=== PATIENT | male | born 1960 | race Caucasian/White ===

== ENCOUNTER 2016-07-25 17:51 | Inpatient (IN) | payer OTHER ==
[~2016-07-25] VITALS: Ht 172.7 cm; Wt 97.7 kg
[2016-07-25] MEDS ORDERED: IPRATRPIUM/ALBUTEROL 0.5/2.5MG 3 ML NEBU. NEB ONE (19:45)
[2016-07-25 20:00] VITALS: BP 121/75
[2016-07-25] MEDS: IPRATRPIUM/ALBUTEROL 0.5/2.5MG 3 ML NEBU. NEB SCH (20:37)
[2016-07-25 21:34] LABS: BASO # 0.1 x10^3/uL (0.0-0.2)
[2016-07-25 21:51] LABS: ALBUMIN/GLOBULIN RATIO 1.1 (1.0-1.7); CALCIUM 9.4 mg/dL (8.5-10.1); CREATININE 0.9 mg/dL (0.7-1.3); GFR 87.9; TOTAL BILIRUBIN 0.3 mg/dL (0.2-1.0); TOTAL PROTEIN 7.7 g/dL (6.4-8.2)
[2016-07-25 23:00] VITALS: BP 136/78
[2016-07-25 23:09] LABS: HEMATOCRIT 45.8 % (39.0-53.0); HEMOGLOBIN 15.9 g/dL (13.0-17.5); RED BLOOD COUNT 5.17 x10^6/uL (4.30-5.70); WHITE BLOOD COUNT 12.8 x10^3/uL (4.0-11.0)
[2016-07-25 23:10] LABS: MEAN CORPUSCULAR HEMOGLOBIN 31 pg (25-35); MEAN CORPUSCULAR HGB CONC 35 g/dL (31-37); MEAN CORPUSCULAR VOLUME 89 fL (79-100); PLATELET COUNT 313 x10^3/uL (140-400); RED CELL DISTRIBUTION WIDTH 13.7 % (11.5-14.5)
[2016-07-25 23:11] LABS: EOS % 3 % (0-3); LYMPH % 42 % (24-48); MONO % 10 % (0-9); NEUT % 44 % (31-73)
--- NOTE | 2016-07-25 23:11 | EKG ---
[facility] [address] [place] [id number] Test Date: 2016-07-25 Test Time: 22:03:54 Pat Name: SHANE ISNGH Department: Room: 5 1 Gender: M Mirror Silverer: [facility] : 1960 Requested By: GARTH COELHO Order Number: [id number] Reading MD: Mich Delcid Measurements Intervals [place] Rate: 66 P: 38 TN: 174 QRS: -5 QRSD: 90 T: 26 QT: 398 QTc: 419 Interpretive Statements SINUS RHYTHM Electronically Signed On 07-31-2016 13:39:46 CDT by Mich Delcid
[2016-07-25 23:12] LABS: BASO % 1 % (0-3); LYMPH # 5.4 x10^3/uL (1.0-4.8)
[2016-07-26 05:46] LABS: CHOLESTEROL/HDL RATIO 7.3
[2016-07-26 07:00] VITALS: BP 122/66
[2016-07-26] MEDS: IPRATRPIUM/ALBUTEROL 0.5/2.5MG 3 ML NEBU. NEB SCH ×3 (07:57→15:53)
--- NOTE | 2016-07-26 08:49 | RAD ---
Indication: Pneumonia Technique: Two-view chest radiograph was obtained. Comparison is from January 03, 2015. Findings: The lungs are clear. The cardiopulmonary silhouette is within normal limits. There is no pleural effusion. The bony structures are intact. Leads overlie the patient. Impression: No acute thoracic findings.
[2016-07-26] MEDS ORDERED: REGADENOSON 0.4 MG/5 ML DISP.SYRIN. IV ONE (09:00)
[2016-07-26 11:00] VITALS: BP 133/64
[2016-07-26] MEDS ORDERED: ACETAMINOPHEN 325 MG TABLET. PO PRN (11:30)
--- NOTE | 2016-07-26 12:08 | PDOC2 ---
CONSULT Date of Consult Date of Consult DATE: 07/26/16 TIME: 11:53 Reason for Consult Reason for Consult: Lymphocytosis Referring Physician Referring Physician: Gilmer Identification/Chief Complaint Chief Complaint malaise Source Source: Patient History of Present Illness Reason for Visit: 55 y/o male with 4 week h/o malise weakness and night sweats but no fevers Had not seen doctor for about 2 years and was feeling ok but went to see Dr Gudino. He says he started feeling like he caught something after this with malaise, leg weakness and aches. Do not have report but was told WBC was abnl. Has been on amoxil about 10 days without help and now admitted. Current cbc shows wbc just over 12 and lymph just over 5000. Not had weight loss, no travel, tick bite or ill exposures to his knowledge. Past Medical History Cardiovascular: Hyperlipidemia (recently rx medication but had not started) CENTRAL NERVOUS SYSTEM: Migraine (uses naproxen about 1x/week) Family History Family History: Other (brother with colon cancer - patient has done c scope about 2 years ago, mom with htn) Social History 1 pack per day (stopped 1 mo ago) ALCOHOL: none (quit about 8 years ago) Lives: with Family Current Medications Current Medications Current Medications Albuterol/ Ipratropium (Duoneb) 3 ml RTQID NEB Last administered on 07/26/16 07:57; Start 07/25/16 at 20:00 Albuterol/ Ipratropium (Duoneb) 3 ml 1X ONCE NEB ; Start 07/25/16 at 19:45; Stop 07/25/16 at 21:30; Status DC Regadenoson (Lexiscan) 0.4 mg 1X ONCE IV Last administered on 07/26/16 10:43 ; Start 07/26/16 at 09:00; Stop 07/26/16 at 09:03; Status DC Acetaminophen (Tylenol) 650 mg PRN Q6HRS PRN PO pain , and temp Last administered on 07/26/16 11:39; Start 07/26/16 at 11:30 Allergies Allergies: Coded Allergies: No Known Drug Allergies (Unverified , 07/25/16) ROS General: YES: Chills, Night Sweats, Fatigue, Malaise PSYCHOLOGICAL ROS: No: Anxiety, Behavioral Disorder, Concentration difficultie , Decreased libido, Depression, Disorientation, Hallucinations, Hostility, Irritablity, Memory difficulties, Mood Swings, Obsessive thoughts, Physical abuse, Sexual abuse, Sleep disturbances, Suicidal ideation, Other Eyes: No Blurry vision, No Decreased vision, No Double vision, No Dry eyes, No Excessive tearing, No Eye Pain, No Itchy Eyes, No Loss of vision, No Photophobia , No Scotomata, No Uses contacts, No Uses glasses, No Other HEENT: No: Heacaches, Visual Changes, Hearing change, Nasal congestion, Nasal discharge, Oral lesions, Sinus pain, Sore Throat, Epistaxis, Sneezing, Snoring, Tinnitus, Vertigo, Vocal changes, Other ALLERGY AND IMMUNOLOGY: No: Hives, Insect Bite Sensitivity, Itchy/Watery Eyes, Nasal Congestion, Post Nasal Drip, Seasonal Allergies, Other Hematological and Lymphatic: No: Bleeding Problems, Blood Clots, Blood Transfusions, Brusing, Night Sweats, Pallor, Swollen Lymph Nodes, Other ENDOCRINE: No: Breast Changes, Galactorrhea, Hair Pattern Changes, Hot Flashes , Malaise/lethargy, Mood Swings, Palpitations, Polydipsia/polyuria, Skin Changes , Temperature Intolerance, Unexpected Weight Changes, Other Respiratory: YES: Cough (CXR negative) Cardiovascular: No Chest Pain, No Palpitations, No Orthopnea, No Paroxysmal Noc. Dyspnea, No Edema, No Lt Headedness, No Other Gastrointestinal: No Nausea, No Vomiting, No Abdominal Pain, No Diarrhea, No Constipation, No Melena, No Hematochezia, No Other Genitourinary: No Dysuria, No Frequency, No Incontinence, No Hematuria, No Retention, No Discharge, No Urgency, No Pain, No Flank Pain, No Other, No , No , No , No , No , No , No Musculoskeletal: Yes Muscle Pain Neurological: Yes Headaches (chronic with migraine and some after recent stress test but not unusual) Skin: No Dry Skin, No Eczema, No Hair Changes, No Lumps, No Mole Changes, No Mottling, No Nail Changes, No Pruritus, No Rash, No Skin Lesion Changes, No Other, No Acne Physical Exam General: Alert, Oriented X3, Cooperative, No acute distress HEENT: Atraumatic, PERRLA, Mucous membr. moist/pink Heart: Regular rate, Normal S1, Normal S2 Abdomen: Normal bowel sounds, Other (obese, may have generous spleen, not tender) Extremities: No clubbing, No cyanosis, No edema, Normal pulses Skin: No rashes Neuro: Normal speech, Normal tone, Cranial nerves 3-12 NL Psych/Mental Status: Mental status NL MUSCULOSKELETAL: No joint tenderness, No deformity, No swelling Vitals VITALS Vital Signs Date Time Temp Pulse Resp B/P (MAP) Pulse Ox O2 Delivery O2 Flow Rate FiO2 07/26/16 08:00 Room Air 07/26/16 07:58 97 07/26/16 07:00 97.7 65 20 122/66 (84) 97.7 Labs Labs Laboratory Tests Test 07/25/16 21:25 07/26/16 04:10 White Blood Count 12.8 x10^3/uL (4.0-11.0) Red Blood Count 5.17 x10^6/uL (4.30-5.70) Hemoglobin 15.9 g/dL (13.0-17.5) Hematocrit 45.8 % (39.0-53.0) Mean Corpuscular Volume 89 fL (79-100) Mean Corpuscular Hemoglobin 31 pg (25-35) Mean Corpuscular Hemoglobin Concent 35 g/dL (31-37) Red Cell Distribution Width 13.7 % (11.5-14.5) Platelet Count 313 x10^3/uL (140-400) Neutrophils (%) (Auto) 44 % (31-73) Lymphocytes (%) (Auto) 42 % (24-48) Monocytes (%) (Auto) 10 % (0-9) Eosinophils (%) (Auto) 3 % (0-3) Basophils (%) (Auto) 1 % (0-3) Neutrophils # (Auto) 5.6 x10^3uL (1.8-7.7) Lymphocytes # (Auto) 5.4 x10^3/uL (1.0-4.8) Monocytes # (Auto) 1.2 x10^3/uL (0.0-1.1) Eosinophils # (Auto) 0.2 x10^3/uL (0.0-0.7) Basophils # (Auto) 0.1 x10^3/uL (0.0-0.2) Erythrocyte Sedimentation Rate 7 (0-15) Sodium Level 143 mmol/L (136-145) Potassium Level 4.0 mmol/L (3.5-5.1) Chloride Level 105 mmol/L (98-107) Carbon Dioxide Level 30 mmol/L (21-32) Anion Gap 8 (6-14) Blood Urea Nitrogen 13 mg/dL (8-26) Creatinine 0.9 mg/dL (0.7-1.3) Estimated GFR (Cockcroft-Gault) 87.9 BUN/Creatinine Ratio 14 (6-20) Glucose Level 130 mg/dL (70-99) Calcium Level 9.4 mg/dL (8.5-10.1) Total Bilirubin 0.3 mg/dL (0.2-1.0) Aspartate Amino Transf (AST/SGOT) 21 U/L (15-37) Alanine Aminotransferase (ALT/SGPT) 38 U/L (16-63) Alkaline Phosphatase 73 U/L (46-116) Troponin I Quantitative < 0.017 ng/mL (0.000-0.055) JO-Lfc-I-Type Natriuretic Peptide 43 pg/mL (0-124) Total Protein 7.7 g/dL (6.4-8.2) Albumin 4.0 g/dL (3.4-5.0) Albumin/Globulin Ratio 1.1 (1.0-1.7) Creatine Kinase 73 U/L (39-308) Triglycerides Level 170 mg/dL (0-150) Cholesterol Level 203 mg/dL (0-200) LDL Cholesterol, Calculated 141 mg/dL (0-100) VLDL Cholesterol, Calculated 34 mg/dL (0-40) Non-HDL Cholesterol Calculated 175 mg/dL (0-129) HDL Cholesterol 28 mg/dL (40-60) Cholesterol/HDL Ratio 7.3 Thyroid Stimulating Hormone (TSH) 2.962 uIU/mL (0.358-3.74) Laboratory Tests Test 07/25/16 21:25 07/26/16 04:10 White Blood Count 12.8 x10^3/uL (4.0-11.0) Red Blood Count 5.17 x10^6/uL (4.30-5.70) Hemoglobin 15.9 g/dL (13.0-17.5) Hematocrit 45.8 % (39.0-53.0) Mean Corpuscular Volume 89 fL (79-100) Mean Corpuscular Hemoglobin 31 pg (25-35) Mean Corpuscular Hemoglobin Concent 35 g/dL (31-37) Red Cell Distribution Width 13.7 % (11.5-14.5) Platelet Count 313 x10^3/uL (140-400) Neutrophils (%) (Auto) 44 % (31-73) Lymphocytes (%) (Auto) 42 % (24-48) Monocytes (%) (Auto) 10 % (0-9) Eosinophils (%) (Auto) 3 % (0-3) Basophils (%) (Auto) 1 % (0-3) Neutrophils # (Auto) 5.6 x10^3uL (1.8-7.7) Lymphocytes # (Auto) 5.4 x10^3/uL (1.0-4.8) Monocytes # (Auto) 1.2 x10^3/uL (0.0-1.1) Eosinophils # (Auto) 0.2 x10^3/uL (0.0-0.7) Basophils # (Auto) 0.1 x10^3/uL (0.0-0.2) Erythrocyte Sedimentation Rate 7 (0-15) Sodium Level 143 mmol/L (136-145) Potassium Level 4.0 mmol/L (3.5-5.1) Chloride Level 105 mmol/L (98-107) Carbon Dioxide Level 30 mmol/L (21-32) Anion Gap 8 (6-14) Blood Urea Nitrogen 13 mg/dL (8-26) Creatinine 0.9 mg/dL (0.7-1.3) Estimated GFR (Cockcroft-Gault) 87.9 BUN/Creatinine Ratio 14 (6-20) Glucose Level 130 mg/dL (70-99) Calcium Level 9.4 mg/dL (8.5-10.1) Total Bilirubin 0.3 mg/dL (0.2-1.0) Aspartate Amino Transf (AST/SGOT) 21 U/L (15-37) Alanine Aminotransferase (ALT/SGPT) 38 U/L (16-63) Alkaline Phosphatase 73 U/L (46-116) Troponin I Quantitative < 0.017 ng/mL (0.000-0.055) YV-Dvd-I-Type Natriuretic Peptide 43 pg/mL (0-124) Total Protein 7.7 g/dL (6.4-8.2) Albumin 4.0 g/dL (3.4-5.0) Albumin/Globulin Ratio 1.1 (1.0-1.7) Creatine Kinase 73 U/L (39-308) Triglycerides Level 170 mg/dL (0-150) Cholesterol Level 203 mg/dL (0-200) LDL Cholesterol, Calculated 141 mg/dL (0-100) VLDL Cholesterol, Calculated 34 mg/dL (0-40) Non-HDL Cholesterol Calculated 175 mg/dL (0-129) HDL Cholesterol 28 mg/dL (40-60) Cholesterol/HDL Ratio 7.3 Thyroid Stimulating Hormone (TSH) 2.962 uIU/mL (0.358-3.74) Assessment/Plan Assessment/Plan 1. Lymphocytosis - overall degree not too impressive - just over 5000 I doubt lymhoproliferative d/o - could be viral or rheumatic Will order peripheral flow, ct abd/pelvis as ? spleen on exam Will also check EBV, CMV serology and koko/rf May be worthwhile to have ID eval as well. will follow, orders placed KATHY KOHLI MD July 26, 2016 12:07
[2016-07-26] MEDS ORDERED: IOHEXOL 240 MG/ML 50ML VIAL. PO ONE (12:15)
[2016-07-26] MEDS ORDERED: IOHEXOL 300 MG/ML 75 ML VIAL IV ONE (12:15)
--- NOTE | 2016-07-26 12:16 | CONS ---
DATE OF CONSULTATION: ATTENDING PHYSICIAN: Dr. Scherer. REASON FOR CONSULTATION: Chest pain. HISTORY OF PRESENT ILLNESS: The patient is a 55-year-old male who presented to the hospital with predominantly complaint of weakness of the lower extremities that started about 4 weeks ago. The patient said he had symptoms of URI about the same time and started with a cough. He had 10 days of Augmentin and actually cough is better. He has occasional chest pain, which is not something that he is bothered by. He stated, in 2014, he had an episode where he was carrying rat poison, which somehow got dropped and he inhale some of the rat poison. He had pain in the chest at that time and did a cardiac workup and he was told it was negative. The patient states the pain did resolve subsequently. He has history of snoring. He does feel tired and sleepy despite getting 10 hours of sleep. His or significant other was at the bedside stated there were no witnessed apneas. He never had any formal sleep study. His chest x-ray was reviewed by me and is clear. He is currently ordered to have a nuclear stress test by Cardiology. PAST MEDICAL HISTORY: Significant for COPD, smoked for about 25-30 years and history of dyslipidemia. PAST SURGICAL HISTORY: No major surgeries. ALLERGIES: None. SOCIAL HISTORY: Smoked for about 25-30 years and works for [employer]. MEDICATIONS: All reviewed as listed in the MRAD including nebulizer. REVIEW OF SYSTEMS: Twelve-point system review was obtained, pertinent positives discussed in history of present illness, otherwise noncontributory. All systems that were negative were reviewed as well. FAMILY HISTORY: Noncontributory to lungs. PHYSICAL EXAMINATION: VITAL SIGNS: Stable. Pulse ox 97% on room air. NECK: Supple. LUNGS: Clear. CARDIOVASCULAR: Regular rate and rhythm. ABDOMEN: Soft. EXTREMITIES: With no pitting edema. LABORATORY DATA: Reviewed. BUN 13, creatinine 0.9, sodium 143. IMPRESSION: 1. Lower extremity weakness. From a pulmonary standpoint, the only condition that I would like to rule out would be inflammatory myopathy/myositis. We will obtain sed rate and CPK. 2. Suspected sleep apnea. He does have history of snoring and daytime sleepiness despite getting 10 hours of sleep and would benefit from a sleep study. 3. Minimal chest pain. Do not think anything of clinical significance; however, has been scheduled for stress test by Cardiology, I will follow the results. 4. Underlying chronic obstructive pulmonary disease from 25-30 years of tobacco use. RECOMMENDATIONS: 1. Obtain sed rate and CPK. 2. Proceed with stress test and if the stress test is negative, then I will obtain CT chest to rule out any interstitial lung disease, which could be related with inflammatory myositis such as polymyositis if diagnosed. 3. PFTs as an outpatient. 4. Continue present bronchodilators. 5. We will follow along with you. MICKI NGO MD DR: ARACELY/patricio JOB#: [id number] / [id number] JAVED
[2016-07-26] MEDS ORDERED: CONTRAST GIVEN MC PRN (12:30)
[2016-07-26] MEDS ORDERED: GADOBUTROL 10 MMOL/10 ML VIAL IV ONE (14:45)
[2016-07-26 15:03] VITALS: BP 135/67
--- NOTE | 2016-07-26 19:44 | RAD ---
PROCEDURE MRI brain with and without contrast. HISTORY Headache and weakness for 4 weeks. Encephalitis. TECHNIQUE Sagittal T1, axial T1, axial T2, axial FLAIR, axial T2 gradient, coronal T2, and diffusion imaging with ADC map were performed. 9 milliliters of intravenous Gadavist was administered without complication. COMPARISON None provided. FINDINGS There is prominence of the ventricles and sulci, has a slight parietal predominance. A few scattered FLAIR hyperintensities in the supratentorial white matter are nonspecific but most suggestive of minimal small vessel ischemic disease. There is no acute intracranial hemorrhage or extra-axial fluid collection. There is no mass effect or midline shift. There is no restricted diffusion to suggest an acute infarct. Pituitary and suprasellar region are unremarkable. Intracranial flow voids are preserved. There is pansinus mucosal thickening which is at least moderate in degree. There is a retention cyst in the right maxillary sinus, large. There is fluid in the optic sheaths. This is a nonspecific finding, can be associated with elevated intracranial pressures. Cerebellar tonsils extend to the foramen magnum but do not extend below. There is no pathologic enhancement. IMPRESSION 1. No acute intracranial findings. 2. Parenchymal volume loss with a slight parietal predominance. 3. Minimal probable small-vessel ischemic disease. Electronically signed by: Romero Meng MD (July 26, 2016 19:43:05)
--- NOTE | 2016-07-27 09:19 | RAD ---
Indication: Weakness for 4 weeks. Technique: Axial images and coronal and sagittal reformatted images are provided. Oral contrast and 75 mL of intravenous Omnipaque 300 was administered without complication. Study is limited to the abdomen, pelvis is not included as ordered. No comparison is available. One or more of the following individualized dose reduction techniques were utilized for this examination: 1. Automated exposure control 2. Adjustment of the mA and/or kV according to patient size 3. Use of iterative reconstruction technique Findings: Linear band of scarring or groundglass opacity in the right middle lobe is noted on the initial image. Lung bases otherwise are clear. There is no pleural effusion. The heart is not enlarged. There are calcified left hilar lymph nodes. There is fatty infiltration of the liver. Gallbladder is unremarkable. Benign calcifications are noted in the spleen. The pancreas and the adrenals are unremarkable. Kidneys are symmetrically perfused. Aorta is normal caliber. There is minimal atheromatous disease. There is a circumaortic left renal vein which is a normal vascular variant. The included small bowel and colon are unremarkable. There is stranding in the mesenteric root with prominent mesenteric lymph nodes. There are mild degenerative changes in the spine. Impression: 1. 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 2. Fatty infiltration of the liver.
--- NOTE | 2016-07-30 00:24 | HP ---
ADMIT DATE: 07/25/2016 HISTORY OF PRESENT ILLNESS: This is a 55-year-old white male who was sent to my office by his primary care physician, Dr. Gudino because he has had chest pain and he did not return for evaluation to my office. I had seen him in the office and I had scheduled a stress test. He did not undergo this. Thus, Dr. Gudino sent him to me. He has had no recent chest pain, but has had chest pain in the past. ____. His main complaint was extreme fatigue. The concern was that this extreme fatigue could be a sign of coronary artery disease. He was so fatigued that he could not work. He had taken off work for about a month. He has a lot of vacation time and sick leave. He was again also so fatigued that he would get up in the morning, but go right back to bed around 10 o'clock and wake up after about 3-4 hours. During the day, he was unable to do anything. He was also short of breath. Thus, even though he had no chest pain the concern for coronary artery disease was there and his primary care physician was very surprised that he had not undergone the stress test for which he had been referred to earlier. He was thus hospitalized to get all this done quickly. He has had no chest pain or diabetes mellitus. However, he continues to smoke about a pack of cigarettes a day. He smoked for about 25-30 years. He also has a history of dyslipidemia. His does not believe he snores. He has had a mild headache. He was seen recently by his primary care physician who informed him that he has leukocytosis with an increased lymphocyte count. PHYSICAL EXAMINATION: GENERAL: When I saw him, he was in no distress. He was awake and alert. VITAL SIGNS: Heart rate was 70 per minute and regular. The blood pressure is 130/80. The pulse oximetry was 97% on room air. LUNGS: Clear. HEART: The heart sounds are normal with no murmur or gallop. ABDOMEN: Soft. IMPRESSION: 1. Chest pain in the recent past. Failed to get investigated and now with continued, but less chest pain and severe fatigue, which could be angina equivalent. 2. Severe fatigue and drowsiness during the day. Rule out sleep apnea. 3. Continued smoking. Consider underlying chronic obstructive pulmonary disease. 4. Recent bronchitis and he seems to be better with amoxicillin. GARTH COELHO MD DR: MARLENE/patricio JOB#: [id number] / [id number]
--- NOTE | 2016-07-30 03:24 | DS ---
DATE OF DISCHARGE: 07/26/2016 HOSPITAL COURSE: This patient was hospitalized. He underwent a myocardial perfusion imaging study the next day because the main concern was underlying coronary artery disease. The MPI was normal. Because of his extreme fatigue and drowsiness, he underwent MRI of the brain to see if there is evidence of encephalitis. This was also because of the lymphocytosis that he had. The MRI was negative. Dr. Smallwood was called on consultation, but she could not see him before he was discharged. The chest x-ray was normal. He was seen in consultation by Dr. Vincent, was suspected sleep apnea. This is because of the history of snoring and daytime sleepiness despite getting 10 hours of sleep. He also felt that he probably had underlying COPD because of his 25-30 years of tobacco use. He considered doing a CT chest, but the patient was discharged prior to that and we can do this as an outpatient. His oxygen saturation was normal. He felt that we could continue his present bronchodilators. He also wanted a pulmonary function test as an outpatient. LABORATORY INVESTIGATIONS ARE FOLLOWS: The WBC count was 12,800 with a hemoglobin of 15.9. The platelet count was 313,000. The neutrophils are only 44%, lymphocytes 42%, and monocytes 10%, eosinophils 3%, basophils 1%. Sed rate was 7. He was seen in consultation by Dr. Henning because of the lymphocytosis. However, he thought that the lymphocytosis was not too impressive because it was just over 5000. He did not think that this was lymphoproliferative disease and he thought that this could be viral. He wanted to check the EBV, CMV serology, and YANIV. He ordered a CT of the abdomen mainly to see if there is evidence of splenomegaly. Benign calcifications were noted in the spleen. The spleen was not described as being enlarged. There was stranding of the mesentery with prominent mesenteric lymph nodes that could be a finding of mesenteric panniculitis. There is fatty infiltration of the liver. The liver function tests were normal. The BNP was 43. The total cholesterol was 203, triglycerides 170, LDL cholesterol 141, and the HDL cholesterol was 28. He does have the high LDL and low HDL. The TSH was 2.9. However, because he has no underlying coronary artery sclerosis, he was not given a statin. He was thus discharged. FINAL DIAGNOSES: 1. Extreme fatigue and sleepiness, probably due to sleep apnea. 2. Intermittent chest pain, severe coronary artery disease ruled out. 3. Mild dyslipidemia with mildly elevated LDL and low HDL cholesterol. 4. Lymphocytosis. Labs drawn to rule out CMV and EBV. YANIV probably ruled out with normal sed rate. 5. Possible mesenteric panniculitis. 6. Possible chronic obstructive pulmonary disease and bronchitis, needs a CT scan and pulmonary function tests. There are some of the things that will be done as an outpatient. I will communicate with and he will be seen by after the above investigations. GARTH COELHO MD DR: MARLENE/patricio JOB#: [id number] / [id number]
[2016-07-30 08:28] LABS: EBNA IGG 21.6 U/mL (0.0-17.9)
== END 2016-07-26 18:30 | disposition home or self-care (01) | DRG 202 ==
LOC: 5 SOUTH 19:28
PROVIDERS: ADMIT Specialist; ATTEND Specialist
DX: J40 Bronchitis, not specified as acute or chronic (principal); K65.4 Sclerosing mesenteritis; B34.9 Viral infection, unspecified; R07.89 Other chest pain; D72.820 Lymphocytosis (symptomatic); E78.5 Hyperlipidemia, unspecified; J44.9 Chronic obstructive pulmonary disease, unspecified; G43.909 Migraine, unspecified, not intractable, without status migrainosus; Z80.0 Family history of malignant neoplasm of digestive organs; Z82.49 Family history of ischemic heart disease and other diseases of the circulatory system; Z87.891 Personal history of nicotine dependence; G47.30 Sleep apnea, unspecified
CPT/HCPCS: 36415; 70553; 71020; 74160; 78452; 80053; 80061; 82550; 83615; 83880; 84443; 84484; 85027; 85651; 86644; 86645; 86663; 86664; 87070; 87205; 93005; 93017; 94250; 94640; 94760; 94799; 96374; 96375; 96376; A9500; A9585; J2785; J7620; Q9966; Q9967